=== PATIENT | male | born 1970 | race Caucasian/White ===

== ENCOUNTER 2017-08-14 18:16 | Emergency (ER) | payer OTHER ==
[2017-08-14 18:19] VITALS: BP 134/63
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
[2017-08-14] MEDS ORDERED: Acetaminophen TAB* 325 MG PO ONE (23:02)
== END 2017-08-14 23:15 | disposition home or self-care (01) ==
LOC: ED 18:16
DX: S02.2XXA Fracture of nasal bones, initial encounter for closed fracture (principal); S09.90XA Unspecified injury of head, initial encounter; S01.81XA Laceration without foreign body of other part of head, initial encounter; Y04.2XXA Assault by strike against or bumped into by another person, initial encounter; Y92.149 Unspecified place in prison as the place of occurrence of the external cause; Z72.0 Tobacco use
CPT/HCPCS: 70450; 70486; 72125; 99282; A9270-GY